=== PATIENT | male | born 1965 | race Caucasian/White ===

== ENCOUNTER 2018-07-25 06:34 | Emergency (ER) | payer BC ==
[2018-07-25] MEDS: SOD CHLORIDE 0.9% 1,000 ML IV (06:41)
[2018-07-25] MEDS: ONDANSETRON 4 MG INJ IV (06:41)
[2018-07-25] MEDS ORDERED: KETOROLAC 30 MG INJ IV (06:41)
[2018-07-25 07:38] LABS: ADD MAN DIFF? NO
[2018-07-25 07:39] LABS: BASOPHILS % 0.3 % (0.0-2.0); EOSINOPHILS # 0.2 10^3/ul (0.0-0.5); EOSINOPHILS % 2.7 % (0.0-7.0); HEMOGLOBIN 15.5 g/dl (14.0-18.0); LYMPHOCYTES # 1.5 10^3/ul (0.8-2.9); LYMPHOCYTES % 19.7 % (15.0-51.0); MEAN CORPUSCULAR HEMOGLOBIN 30.9 pg (29.0-33.0); MEAN CORPUSCULAR HGB CONC 34.4 g/dl (32.0-37.0); MEAN CORPUSCULAR VOLUME 89.8 fl (82.0-101.0); MEAN PLATELET VOLUME 10.4 fl (7.4-10.4); MONOCYTE # 0.6 10^3/ul (0.3-0.9); MONOCYTES % 8.1 % (0.0-11.0); NEUTROPHIL # 5.2 10^3/ul (1.6-7.5); NEUTROPHILS % 68.7 % (39.0-77.0); PLATELET COUNT 215 10^3/UL (140-415); RED BLOOD COUNT 5.01 10^6/ul (4.70-6.10); RED CELL DISTRIBUTION WIDTH 12.5 % (11.5-14.5)
[2018-07-25 07:39] LABS: WHITE BLOOD COUNT 7.5 10^3/ul (4.8-10.8)
[2018-07-25] MEDS: HYDROmorphONE 1 MG/ML SYG IV (07:41)
[2018-07-25] MEDS: KETOROLAC 30 MG INJ IM (07:42)
[2018-07-25 08:03] LABS: ALANINE AMINOTRANSFERASE 41 IU/L (13-69); ALBUMIN 3.7 g/dl (3.3-4.9); ALBUMIN/GLOBULIN RATIO 1.23; ALKALINE PHOSPHATASE 43 IU/L (42-121); ANION GAP 12 (8-16); ASPARTATE AMINO TRANSFERASE 25 IU/L (15-46); BILIRUBIN,INDIRECT 0.5 mg/dl (0-1.1); BILIRUBIN,TOTAL 0.5 mg/dl (0.2-1.3); BLOOD UREA NITROGEN 17 mg/dl (7-20); CALCIUM 9.3 mg/dl (8.4-10.2); CARBON DIOXIDE 28 mmol/L (21-31); CHLORIDE 103 mmol/L (97-110); CREATININE 0.78 mg/dl (0.61-1.24); GLUCOSE 132 mg/dl (70-220); POTASSIUM 3.9 mmol/L (3.5-5.1); SODIUM 139 mmol/L (135-144); TOTAL PROTEIN 6.7 g/dl (6.1-8.1)
[2018-07-25] MEDS: metroNIDAZOLE 500 MG TAB PO (08:38)
[2018-07-25] MEDS: CIPROFLOXACIN 500 MG TAB PO (08:38)
[2018-07-25 09:48] LABS: INR 0.98; PROTIME 13.1 Sec (11.9-14.9)
[2018-07-25 09:51] LABS: PARTIAL THROMBOPLASTIN TIME 24.1 Sec (25.0-35.0)
== END 2018-07-25 08:46 | disposition home or self-care (01) ==
LOC: E/R 06:34
DX: K57.32 Diverticulitis of large intestine without perforation or abscess without bleeding (principal); Z87.891 Personal history of nicotine dependence
CPT/HCPCS: 74176; 80053; 85025; 85610; 85730; 96372; 96374; 99285-25